=== PATIENT | female | born 1960 | race Caucasian/White ===

== ENCOUNTER 2023-04-04 11:51 | Outpatient (AMB) | payer BC, MEDICARE, SELFPAY ==
--- NOTE | 2023-04-04 12:09 | AM.OFFWIN_ITS ---
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 Sinus Infection Intake Note: pt is here for c.o possible sinus infection, congestion, runny nose, sinus pressure Patient Tobacco Use Status: Never used Tobacco Allergies doxycycline Allergy (Mild, Verified 04/04/23 12:17) Rash levofloxacin [From Levaquin] Allergy (Mild, Verified 04/04/23 12:17) Rash sulfamethoxazole [From Bactrim] Allergy (Mild, Verified 04/04/23 12:17) Rash trimethoprim [From Bactrim] Allergy (Mild, Verified 04/04/23 12:17) Rash Medication List - Last Reconciled 04/04/23 by Siena Timmons NP amoxicillin 500 mg PO Q8H 7 days aspirin 81 mg PO DAILY heovsvbxii-kpgjxhpjrbxvu-ytbx 50-325-40 mg tabs PO duloxetine 60 mg PO DAILY fenofibrate nanocrystallized 145 mg PO DAILY levothyroxine 75 mcg PO DAILY naratriptan mg PO oxycodone 5 mg PO Q6H PRN pregabalin (Lyrica) 50 mg PO QDAY simvastatin 40 mg PO BEDTIME spironolactone 100 mg PO DAILY sumatriptan succinate mg subcut topiramate 100 mg PO DAILY trazodone 150 mg PO BEDTIME PRN Do you need a note to return to daycare/school/sports/work: No HPI HPI Comments History of Present Illness Details 63 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 Reports that symptoms started 2 weeks ago. She has not taken any medications for her symptoms. [facility] Social History Patient Tobacco Use Status: Never used Tobacco Review of Systems Const All systems reviewed & are unremarkable except as noted in HPI and below Physical Exam Vital Signs: Last Vital Signs Temp 98.2 F 04/04/23 12:15 Pulse 74 04/04/23 12:15 BP 122/80 04/04/23 12:15 Pulse Ox 98 04/04/23 12:15 Oxygen Delivery Method Room Air 04/04/23 12:15 BMI result Body Mass Index 36.0 Const General: no acute distress HEENT Head: Yes normocephalic Ears: TM's normal bilaterally General nose exam: Abnormal mucous membranes and turbinates present boggy and erythematous and Nasal discharge present Face and sinus: Yes sinus tenderness Mouth: moist mucous membranes Throat: Yes tonsils normal, Yes uvula midline and Yes postnasal drainage Resp Effort & Inspection: normal respiratory effort Auscultation: clear to auscultation bilaterally Cardio Rate: regular rate Rhythm: regular rhythm Assessment & Plan Assessment & Plan (1) Sinus pressure: Code(s): J34.89 - Other specified disorders of nose and nasal sinuses Plan: A warm compress on the nose and forehead might help lessen pressure in the sinuses. Keep sinuses moist. Breathing in the steam from a bowl of hot water with a towel over the head might help. Or take a hot shower, breathing in the warm, moist air. (2) Acute rhinosinusitis: Code(s): J01.90 - Acute sinusitis, unspecified Plan: A warm compress on the nose and forehead might help lessen pressure in the sinuses. Keep sinuses moist. Breathing in the steam from a bowl of hot water with a towel over the head might help. Or take a hot shower, breathing in the warm, moist air. Plan A warm compress on the nose and forehead might help lessen pressure in the sinuses. Keep sinuses moist. Breathing in the steam from a bowl of hot water with a towel over the head might help. Or take a hot shower, breathing in the warm, moist air. Medications: New amoxicillin 500 mg PO Q8H 7 days 21 caps 0RF J01.90 - Acute sinusitis, unspecified, J34.89 - Other specified disorders of nose and nasal sinuses Coding Level of Care Code New Pt Level 3 (30388) Diagnoses Sinus pressure J34.89 Acute rhinosinusitis J01.90 Time Spent (min) 15
[2023-04-04 12:15] VITALS: BP 122/80; PULSE 74; TEMP 36.8; O2SAT 98; BMI 36.0
== END 2023-04-04 12:29 | disposition home or self-care (01) ==
PROVIDERS: PCP Internal Medicine; Visit Provider Nurse Practitioner Family
DX: J34.89 Other specified disorders of nose and nasal sinuses (principal); J01.90 Acute sinusitis, unspecified
CPT/HCPCS: 99203

== ENCOUNTER 2024-02-05 08:13 | Outpatient (AMB) | payer BC, MEDICARE, SELFPAY ==
[2024-02-05 08:30] VITALS: BP 122/76; PULSE 71; TEMP 36.6; O2SAT 99
--- NOTE | 2024-02-05 08:30 | MHC.OFFWIV ---
Intake Vital Signs 02/05/24 08:30 Height 5 ft 4 in BP 122/76 Blood Pressure Location Rt brachial Position Sitting Pulse 71 Pulse Source Pulse Oximeter Temp 97.9 F Temp Source Oral Pulse Oximetry (%) 99 Oxygen Delivery Method Room Air Intake Visit Reasons: EP-sinus infection Intake Note: pt is here for c/o possible sinus infection, ongoing for 1 month Patient Tobacco Use Status: Never used Tobacco Allergies doxycycline Allergy (Mild, Verified 02/05/24 08:31) Rash levofloxacin [From Levaquin] Allergy (Mild, Verified 02/05/24 08:31) Rash sulfamethoxazole [From Bactrim] Allergy (Mild, Verified 02/05/24 08:31) Rash trimethoprim [From Bactrim] Allergy (Mild, Verified 02/05/24 08:31) Rash Do you need a note to return to daycare/school/sports/work: No HPI HPI Comments History of Present Illness Details Patient is a 64-year-old female complaining of 5 weeks of a sinus infection. She tells me she has head congestion, sinus pain, low-grade subjective fevers. She denies any ear pain, shortness of breath or wheezing. She is eating and drinking normally. She has tried taking a sinus spray, a saline spray and Flonase which does help temporarily. She tested for COVID a few weeks ago and was negative. She does not have any sick contacts at home. She denies a history of asthma or COPD. [facility] Social History Patient Tobacco Use Status: Never used Tobacco Review of Systems Const All systems reviewed & are unremarkable except as noted in HPI and below Physical Exam Vital Signs: Last Vital Signs Temp 97.9 F 02/05/24 08:30 Pulse 71 02/05/24 08:30 BP 122/76 02/05/24 08:30 Pulse Ox 99 02/05/24 08:30 Oxygen Delivery Method Room Air 02/05/24 08:30 Const General: cooperative, healthy appearing, comfortable and no acute distress Orientation/consciousness: patient oriented x3 Limitations: no limitations HEENT Head: Yes normal to inspection Ears: hearing grossly normal bilaterally, external ears normal and TM's normal bilaterally General nose exam: Normal external nose present, Normal nares present and No nasal discharge present Face and sinus: Yes normal facial exam and Yes sinus tenderness (frontal bilateral) Mouth: Normal oral and palatal mucosa present and moist mucous membranes Throat: Yes tonsils normal, Yes uvula midline and Yes posterior oropharynx abnormal (Erythema) Eyes General: appearance normal, both eyes and all related structures Neck Neck: Yes normal visual inspection Resp Effort & Inspection: normal respiratory effort, able to speak in complete sentences, Actively coughing, no respiratory distress, not tachypneic, no tripod positioning and no use of accessory muscles Skin General skin exam: no rashes or lesions noted Neuro General: patient oriented x3 Extrem General: Yes normal to inspection and Yes no clubbing, cyanosis or edema Assessment & Plan Assessment & Plan (1) Sinusitis, acute frontal: Code(s): J01.10 - Acute frontal sinusitis, unspecified Qualifiers: Recurrence: non-recurrent Qualified Code(s): J01.10 - Acute frontal sinusitis, unspecified Plan: We will prescribe Augmentin. Patient tells me she has a Solu-Medrol Dosepak at home so I encouraged her to start taking that for symptomatic relief. Also encouraged her to get a Neti pot with distilled water, continue to use her saline spray and Flonase. Plan See above Medications: New amoxicillin-pot clavulanate 875-125 mg 1 tab PO Q12H 14 tabs 0RF Coding Level of Care Code New Pt Level 3 (08355) Diagnoses Acute non-recurrent frontal sinusitis J01.10 Recurrence: non-recurrent
== END 2024-02-05 08:44 | disposition home or self-care (01) ==
PROVIDERS: PCP Internal Medicine; Visit Provider Physician Assistant
DX: J01.10 Acute frontal sinusitis, unspecified (principal)

== ENCOUNTER → 2024-02-05 08:13 | Outpatient (BNVA) | payer BC, MEDICARE, SELFPAY | PROVIDERS: PCP Internal Medicine; Visit Provider Physician Assistant ==